=== PATIENT | male | born 2000 | race American Indian/Alaskan Native ===

== ENCOUNTER 2022-05-11 10:03 | Day surgery (SDC) | payer BC ==
[~2022-05-11 10:03] MED LIST: ceFAZolin/Water 2 GM/20 ML 2 GM/20 ML SYRINGE IV SCH
[2022-05-11] MEDS ORDERED: LACTATED RINGERS 1,000 ML ONE ×3 (10:37→16:37)
[2022-05-11] MEDS ORDERED: ONDANSETRON 4 MG/2 ML INJ IV PRN (11:59)
[2022-05-11] MEDS ORDERED: MAGNESIUM OXIDE 400 MG TAB PO NR (11:59)
[2022-05-11] MEDS ORDERED: ACETAMINOPHEN 500 MG TAB PO NR (11:59)
[2022-05-11] MEDS ORDERED: HYDROmorphone 0.5 MG/0.5 ML INJ IV PRN ×2 (11:59)
[2022-05-11] MEDS ORDERED: CELECOXIB 200 MG CAP PO NR (12:00)
[2022-05-11] MEDS ORDERED: MIDAZOLAM 2 MG/2 ML INJ IV NR (12:00)
--- NOTE | 2022-05-11 12:00 | Anesthesia Day of Surgery ---
Anesthesia Day of Surgery - Day of Surgery Patient Examined: Yes Patient H&P Reviewed: Yes Patient is NPO: Yes
--- NOTE | 2022-05-11 12:01 | Anesthesia Consultation ---
Anesthesia Consult and Med Hx Date of service: 05/11/22 - Airway Anesthetic Teeth Evaluation: Good ROM Head & Neck: Adequate Mental/Hyoid Distance: Adequate Mallampati Class: Class II Intubation Access Assessment: Good - Pre-Operative Health Status ASA Pre-Surgery Classification: ASA1 Proposed Anesthetic Plan: General - Pulmonary Hx Smoking: No Hx Pneumonia: No Hx Sleep Apnea: No - Central Nervous System Hx Psychiatric Problems: No - Gastrointestinal Hx Gastroesophageal Reflux Disease: No - Hematic Hx Anemia: No Hx Sickle Cell Disease: No - Other Systems Hx Alcohol Use: Yes (RARELY) Hx Substance Use: No Hx Cancer: No Hx Obesity: No
[2022-05-11] MEDS ORDERED: LACTATED RINGERS 1,000 ML IV SCH (12:30)
[2022-05-11] MEDS ORDERED: ROCURONIUM 50 MG/5 ML INJ IV ONE (13:12)
[2022-05-11] MEDS ORDERED: HYDROmorphone 1 MG/1 ML INJ ONE (13:12)
[2022-05-11] MEDS ORDERED: ONDANSETRON 4 MG/2 ML INJ ONE (13:12)
[2022-05-11] MEDS ORDERED: ePHEDrine SULFATE 50 MG/1 ML INJ ONE (13:13)
[2022-05-11] MEDS ORDERED: propofoL 200 MG/20 ML VIAL IV ONE (13:13)
[2022-05-11] MEDS ORDERED: fentaNYL 100 MCG/2 ML INJ ONE (13:38)
[2022-05-11] MEDS ORDERED: LIDOCAINE (1%) 10 MG/1 ML VIAL 20 ML MDV ONE (13:41)
[2022-05-11] MEDS ORDERED: BUPIVACAINE-EPINEPHRINE/PF 0.5%-1:200,000 (30 ML) VIAL INFILTRATI ONE ×2 (13:41→16:42)
[2022-05-11] MEDS ORDERED: NEOSTIGMINE 10MG/10 ML INJ MDV ONE (16:33)
[2022-05-11] MEDS ORDERED: GLYCOPYRROLATE 0.4 MG/2 ML INJ ONE (16:33)
[2022-05-11] MEDS ORDERED: LIDOCAINE (1%) 10 MG/1 ML VIAL 20 ML MDV INFILTRATI ONE (16:42)
[2022-05-11] MEDS ORDERED: SODIUM CHLORIDE 0.9% IRR 1,500 ML BOTTLE IR ONE (16:43)
--- NOTE | 2022-05-11 16:55 | Short Stay Summary ---
Short Stay Documentation Date of service: 05/11/22 - History H&P: obtained from office - Allergies and Medications Current Medications: Allergies No Known Allergies Allergy (Verified 05/02/22 16:18) Home Medications Medication Instructions Recorded Confirmed Last Taken Type No Known Home Medications [No 05/02/22 05/02/22 Unknown History Reported Home Medications] Active Medications Acetaminophen (Acetaminophen 500 Mg Tab) 1,000 mg PO ONCE NR Stop: 05/11/22 21:00 Last Admin: 05/11/22 12:10 Dose: 1,000 mg Celecoxib (Celecoxib 200 Mg Cap) 400 mg PO PREOP NR Stop: 05/11/22 21:00 Last Admin: 05/11/22 12:10 Dose: 400 mg Hydromorphone HCl (Hydromorphone 0.5 Mg/0.5 Ml Inj) 0.25 mg IV Q10MIN PRN PRN Reason: Pain, Moderate (4-6) Hydromorphone HCl (Hydromorphone 0.5 Mg/0.5 Ml Inj) 0.5 mg IV Q10MIN PRN PRN Reason: Pain , Severe (7-10) Cefazolin Sodium (Ancef/Sterile Water 2 Gm/20 Ml) 2 gm in 20 mls @ 80 mls/hr IV PREOP LICO; Protocol Lactated Ringer's (Lactated Ringers) 1,000 mls @ 125 mls/hr IV DIRECT LICO Last Admin: 05/11/22 11:10 Dose: 125 mls/hr Magnesium Oxide (Magnesium Oxide 400 Mg Tab) 400 mg PO ONCE NR Stop: 05/11/22 17:00 Last Admin: 05/11/22 12:10 Dose: 400 mg Methocarbamol (Methocarbamol 750 Mg Tab) 1,500 mg PO ONCE NR Stop: 05/11/22 21:00 Last Admin: 05/11/22 12:10 Dose: 1,500 mg Midazolam HCl (Midazolam 2 Mg/2 Ml Inj) 2 mg IV PREOP NR Stop: 05/11/22 23:59 Ondansetron HCl (Ondansetron 4 Mg/2 Ml Inj) 4 mg IV ONCE PRN PRN Reason: Nausea And Vomiting Stop: 05/11/22 23:59 - Brief post op/procedure progress note Date of procedure: 05/11/22 Pre-op diagnosis: bilateral direct inguinal hernia Post-op diagnosis: same Procedure: robotic repair of bilateral inguinal hernia with mesh Anesthesia: GETA Findings: bilateral direct inguinal hernia Surgeon: SONYA BROWN Rib Cloth Knitter: EFREN BALES Estimated blood loss: minimal Pathology: none Condition: stable - Disposition Condition at discharge: Good Disposition: 01 HOME / SELF CARE / HOMELESS Short Stay Discharge Plan Activity: no restrictions Weight Bearing Status: Full Weight Bearing Wound: open to air Follow up with: PRIMARY MD MO [Primary Care Provider] - 7 Days SONYA BROWN MD [Staff Physician] - 7 Days Prescriptions: HYDROcodone/APAP 5-325 [[place] 5/325] 1 each PO Q6HR PRN #10 tablet PRN Reason: Pain
--- NOTE | 2022-05-11 17:03 | Operative Report ---
Operative Report Operative Report: Date: 05/11/2022 Preop diagnosis: Bilateral inguinal hernia Postop diagnosis: Same Procedure: Robotic bilateral inguinal hernia repair with mesh Surgeon: Dr. Cox Costumer Assistant: Anesthesia: CHARMAINE estimated blood loss: Minimal Specimen: None Findings: This patient presents with bilateral inguinal hernias. He is taken to the OR and under general endotracheal anesthesia timeout is completed consents on the chart. Patient received 2 g of Ancef IV. Bustos catheter is in place. The abdomen is shaved and prepped with ChloraPrep. Sterilely draped. A supraumbilical incision is made. Varies needle was placed through this. Abdomen is insufflated with CO2. A 5 mm Visiport is used to gain access at the supraumbilical incision. And the abdomen is inspected. 8 mm port is established in the right and left hypogastric areas. The 5 Mcgee port is removed and a 12 mm port is established. The robot is then docked in the usual fashion. Cautery scissors is used in arm 1 and the bipolar grasper in arm two. 30 degree angled scope was used. Peritoneal incision is made in the right lower quadrant. Properitoneal dissection is then performed to expose the pubic tubercle the hernia and cord structures, and the lateral space. The umbilical hernia is completely dissected free of the internal ring. Attention was then turned to the left lower quadrant. A similar peritoneal incision is made. And the properitoneal dissection is performed to expose the pubic tubercle medially and the lateral space. Left and right large 3D Max Min Bard mesh is then placed into the abdomen. The mesh is placed into the properitoneal dissections. Medial and lateral sutures are used with 2-0 Vicryl to fix the edges of the mesh in place. The peritoneal incision is then reapproximated using 3-0 barbed suture. Sponge and needle counts are noted and are correct. The supraumbilical incision is closed with 2-0 Vicryl sutures. CO2 is allowed to exit the abdomen. All ports were then removed. Skin incisions were closed with 4-0 Monocryl and Dermabond. Patient tolerated procedure well.
[2022-05-11] MEDS ORDERED: HYDROcodone/ACETAMINOPHEN 5-325 MG TAB PO PRN (17:36)
--- NOTE | 2022-05-11 18:48 | Post Anesthesia Evaluation ---
- Post Anesthesia Evaluation Patient Participated: Yes Airway Patent: Yes Stable Respiratory Function: Yes Nausea/Vomiting: No Temp > 96.8F: Yes Pain Manageable: Yes Adequeate Hydration: Yes Anesthesia Complications: No Block Receding Appropriately: Not Applicable Patient on Ventilator: No
[2022-05-11 19:01] VITALS: BP 132/83
== END 2022-05-11 18:55 | disposition home or self-care (01) ==
LOC: OR 10:03
PROVIDERS: ATTEND Surgery
DX: K40.20 Bilateral inguinal hernia, without obstruction or gangrene, not specified as recurrent (principal); Z79.899 Other long term (current) drug therapy; Z72.89 Other problems related to lifestyle; Z98.890 Other specified postprocedural states
CPT/HCPCS: 49650; C1781; J0690; J1170; J1815; J2250; J2405; J2704; J2710; J3010; J3490; J7120; S2900